=== PATIENT | male | born 1975 | race Caucasian/White ===

== ENCOUNTER → 2018-01-13 09:21 | Outpatient (CLI) | payer BC, SELFPAY ==
[2018-01-13 09:37] LABS: Basophils # 0.1 K/mm3 (0-0.2); Basophils % 0.6 % (0.1-2.0); Eosinophils # 0.4 K/mm3 (0.0-0.4); Eosinophils % 4.5 % (0.1-12.0); Hematocrit 51.9 % (42.0-52.0); Hemoglobin 16.7 g/dL (14.1-18.0); Lymphocytes # 2.4 K/mm3 (0.7-4.5); Lymphocytes % 27.9 K/mm3 (10-50); Mean Corpuscular HGB Conc 32.2 g/dL (31.8-35.4); Mean Corpuscular Hemoglobin 30.3 pg (27.0-31.2); Mean Corpuscular Volume 94.1 fl (80-94); Mean Platelet Volume 8.6 fl (7.4-10.4); Monocytes # 0.5 K/mm3 (0.1-1.0); Monocytes % 5.4 % (1.7-9.3); Neutrophils # 5.2 K/mm3 (1.8-7.8); Neutrophils % 61.7 % (37.0-80.0); Platelet Count 219 K/mm3 (142-424); Red Blood Count 5.51 M/mm3 (4.60-6.20); Red Cell Distribution Width 12.8 % (11.5-17.5); White Blood Count 8.4 K/mm3 (4.8-10.8)
[2018-01-13 10:40] LABS: Alanine Aminotransferase 29 U/L (12-78); Albumin Level 3.7 gm/dL (3.4-5.0); Albumin/Globulin Ratio 1.1 (1.1-1.8); Alkaline Phosphatase 83 U/L (46-116); Anion Gap 14.7 mEq/L (5-15); Aspartate Amino Transferase 14 U/L (15-37); Bilirubin,Total 0.6 mg/dL (0.2-1.0); Blood Urea Nitrogen 14 mg/dL (7-18); Calcium 8.9 mg/dL (8.5-10.1); Carbon Dioxide 24 mmol/L (21.0-32.0); Chloride 105 mmol/L (98-107); Chol/HDL Ratio 4.2 (1-3.5); Cholesterol 222 mg/dL (140-200); Creatinine,Serum 0.97 mg/dL (0.70-1.30); Estimated Glomerular Filt Rate 85 ml/min (>60); GFR (African American) 103 ML/MIN (>60); Globulin 3.4 gm/dl (1.3-3.2); Glucose 101 mg/dL (74-106); HDL Cholesterol 53 mg/dL (27-67); LDL Cholesterol 139 mg/dL (0-130); Potassium 4.7 mmoL/L (3.5-5.1); Sodium 139 mmol/L (136-145); Thyroid Stimulating Hormone 1.42 uIU/ml (0.358-3.740); Total Protein,Serum 7.1 gm/dL (6.4-8.2); Triglycerides 152 mg/dL (30-200); VLDL Cholesterol 30 mg/dL (0-40)
== END ==
PROVIDERS: Visit Provider Family Medicine
DX: E78.5 Hyperlipidemia, unspecified (principal); K21.9 Gastro-esophageal reflux disease without esophagitis; F41.9 Anxiety disorder, unspecified
CPT/HCPCS: 36415; 80053; 80061; 84443; 85025

== ENCOUNTER → 2018-04-07 11:23 | Outpatient (CLI) | payer BC, SELFPAY ==
[2018-04-07 11:27] LABS: Microscopic, Urine URINE MICROSCOPIC (MICROSCOPIC)
[2018-04-07 11:46] LABS: Basophils # 0.1 K/mm3 (0-0.2); Basophils % 0.7 % (0.1-2.0); Eosinophils # 0.3 K/mm3 (0.0-0.4); Eosinophils % 2.7 % (0.1-12.0); Hematocrit 51.5 % (42.0-52.0); Hemoglobin 16.8 g/dL (14.1-18.0); Lymphocytes # 2.4 K/mm3 (0.7-4.5); Lymphocytes % 22.2 K/mm3 (10-50); Mean Corpuscular HGB Conc 32.7 g/dL (31.8-35.4); Mean Corpuscular Hemoglobin 31.5 pg (27.0-31.2); Mean Corpuscular Volume 96.6 fl (80-94); Mean Platelet Volume 8.4 fl (7.4-10.4); Monocytes # 0.5 K/mm3 (0.1-1.0); Monocytes % 4.3 % (1.7-9.3); Neutrophils # 7.6 K/mm3 (1.8-7.8); Neutrophils % 70.1 % (37.0-80.0); Platelet Count 200 K/mm3 (142-424); Red Blood Count 5.33 M/mm3 (4.60-6.20); White Blood Count 10.9 K/mm3 (4.8-10.8)
[2018-04-07 11:54] LABS: Activated Partial Thrombo Time 27.8 seconds (23.6-34.0); INR 0.97 (0.9-1.1)
[2018-04-07 11:55] LABS: Appearance,Urine CLEAR (Clear); Bilirubin,Urine Negative (Negative); Blood, Urine TRACE-L (Negative); Color,Urine YELLOW (Yellow); Glucose,Urine (UA) Negative (Negative); Ketones,Urine Negative (Negative); Leukocyte Esterase,Urine Negative (Negative); Nitrate,Urine Negative (Negative); Protein,Urine Negative (Negative); Specific Gravity, Urine 1.025 (1.005-1.030); Urobilinogen,Urine 0.2 EU/dl (0.2)
--- NOTE | 2018-04-07 11:56 | XR_ITS ---
XR chest 2V HISTORY: ITS.REASON: SMOKER, PREOP ORDERING PHYSICIAN: Jos Moreland MD PATIENT AGE: 43 years COMPARISON: None FINDINGS: The cardiomediastinal silhouette and pulmonary vascularity are within normal limits. The lungs are clear without infiltrates, suspicious nodules, or pleural effusions. Mild COPD with hyperinflation No acute bony abnormalities. IMPRESSION: COPD otherwise negative
[2018-04-07 12:09] LABS: Hemoglobin A1C 5.5 % (0.0-7.0)
[2018-04-07 12:31] LABS: Amorphous Sediment,Urine 1+ /lpf; Fine Granular Casts,Urine Occasional #/lpf (0); Hyaline Casts,Urine Occasional #/lpf (0); Mucus,Urine 3+ /lpf; WBC,Urine Occasional #/hpf (0-3)
[2018-04-07 14:51] LABS: Alanine Aminotransferase 28 U/L (12-78); Albumin Level 3.8 gm/dL (3.4-5.0); Albumin/Globulin Ratio 1.1 (1.1-1.8); Alkaline Phosphatase 98 U/L (46-116); Anion Gap 15.2 mEq/L (5-15); Aspartate Amino Transferase 9 U/L (15-37); Bilirubin,Total 0.5 mg/dL (0.2-1.0); Blood Urea Nitrogen 14 mg/dL (7-18); Calcium 9.1 mg/dL (8.5-10.1); Carbon Dioxide 25 mmol/L (21.0-32.0); Chloride 105 mmol/L (98-107); Creatinine,Serum 1.15 mg/dL (0.70-1.30); Estimated Glomerular Filt Rate 70 ml/min (>60); GFR (African American) 84 ML/MIN (>60); Globulin 3.4 gm/dl (1.3-3.2); Glucose 92 mg/dL (74-106); Potassium 4.2 mmoL/L (3.5-5.1); Sodium 141 mmol/L (136-145); Total Protein,Serum 7.2 gm/dL (6.4-8.2)
== END ==
PROVIDERS: PCP Family Medicine; Visit Provider Family Medicine
DX: Z01.818 Encounter for other preprocedural examination (principal); M25.552 Pain in left hip
CPT/HCPCS: 36415; 71046; 80053; 81001; 83036; 85025; 85610; 85730; 93005

== ENCOUNTER → 2019-11-20 12:11 | Outpatient (CLI) | payer BC, SELFPAY ==
[2019-11-20 13:04] LABS: Basophils # 0.1 K/mm3 (0-0.2); Basophils % 0.7 % (0.1-2.0); Eosinophils # 0.1 K/mm3 (0.0-0.4); Eosinophils % 1.3 % (0.1-12.0); Hematocrit 49.5 % (42.0-52.0); Hemoglobin 16.1 g/dL (14.1-18.0); Lymphocytes # 2.2 K/mm3 (0.7-4.5); Lymphocytes % 25.1 % (10-50); Mean Corpuscular HGB Conc 32.6 g/dL (31.8-35.4); Mean Corpuscular Hemoglobin 31.3 pg (27.0-31.2); Monocytes # 0.5 K/mm3 (0.1-1.0); Monocytes % 5.5 % (1.7-9.3); Neutrophils # 5.9 K/mm3 (1.8-7.8); Neutrophils % 67.3 % (37.0-80.0); Platelet Count 187 K/mm3 (142-424); Red Blood Count 5.16 M/mm3 (4.60-6.20); Red Cell Distribution Width 13.2 % (11.5-17.5); White Blood Count 8.8 K/mm3 (4.8-10.8)
[2019-11-20 13:54] LABS: Strep Scrn Group A (Rapid) Negative (Negative)
== END ==
PROVIDERS: Visit Provider Physician Assistant
DX: J02.9 Acute pharyngitis, unspecified (principal)
CPT/HCPCS: 36415; 85025; 87430

== ENCOUNTER → 2021-08-30 09:27 | Outpatient (CLI) | payer BC, SELFPAY ==
--- NOTE | 2021-08-30 | CA_ITS ---
APPROVED REPORT EXAM: Comprehensive 2D, Doppler, and color-flow Echocardiogram Elect Equip Maint Eng: Maye Tan RT(R) Ht: 6 ft 1 in Wt: 255lbs BSA: 2.39 BP: 138/80 mmHg Indications: murmur, HTN, HTN, family history of HD, obesity 2D Dimensions LVOT 2.20 cm (M/F) 1.5-2.5 LA Volume 77.70 mL LA Volume Index 32.64 mL/m2 (M/F) 16-34 M-Mode Dimensions RVDd 2.61 cm (0.9-2.6) LA Diam 4.92 cm (1.9-4.0) LVDd 5.29 cm (3.5-5.7) Ao Diam 3.11 cm (2.0-3.7) LVDs 4.15 cm (3.5-5.7) IVSd 0.97 cm (0.6-1.1) PWd 0.93 cm (0.6-1.1) EF (Teich) 43.30% FS 21.60% EDV (Teich) 134.80 mL ESV (Teich) 76.40 mL LV Diastology E Decel Time 213.00 (160-240 msec) E/A Ratio 0.8 MED E' 6.00 (< 7 cm/sec) E'/MED E' Ratio 10.28 (>14) LAT E' 9.80 (<10 cm/sec) E/LAT E' Ratio 6.30 (>14) Mitral Valve MV E Max Aldo. 62.00 (40-130 cm/s) MV A Velocity 73.00 (40-130 cm/s) E/A Ratio 0.85 MV Decel. Time 213.00 (160-240 ms) MV PHT 62.00 ms Left Ventricle Left atrium is mildly enlarged, left ventricle is normal size, mild visually estimated ejection fraction 55% with no regional wall motion abnormality, grade 1 diastolic dysfunction seen without tissue Doppler evidence of raise left atrial pressure. Right Ventricle Right atrium and right ventricle are normal size and contractility. Aortic Valve Aortic valve is minimally thickened and fibrosed, there is no aortic stenosis or aortic insufficiency. Mitral Valve Mitral valve is grossly normal, there is trace mitral regurgitation. Tricuspid Valve Tricuspid grossly normal, there is trace tricuspid regurgitation, tricuspid regurgitation jet velocity is inadequate for calculation of the right ventricular systolic pressure. Pulmonic Valve Pulmonic valve is poorly visualized. Great Vessels Aortic root is normal size. Inferior vena cava is normal size with normal inspiratory collapse. Pericardium No significant pericardial effusion noted. Conclusion 1. Mildly enlarged left atrium, normal left ventricular size, mild concentric left ventricular hypertrophy, visually estimated ejection fraction 55% with no regional wall motion abnormality, grade 1 diastolic dysfunction seen without tissue Doppler evidence of raise left atrial pressure. 2. Minimally thickened and calcified aortic valve without aortic stenosis or aortic insufficiency. 3. Trace mitral and tricuspid regurgitation. 4. No significant pericardial effusion. 5. Inferior vena cava is normal size with normal inspiratory collapse. Electronically signed by : Fermin Terry MD 08/30/2021 11:25:25
[2021-08-30 12:26] LABS: Chloride 107 mmol/L (98-107); Sodium 137 mmol/L (136-145)
[2021-08-30 12:28] LABS: Blood Urea Nitrogen 12 mg/dl (9-20); Estimated Glomerular Filt Rate 91 ml/min (>60); GFR (African American) 110 ML/MIN (>60)
[2021-08-30 12:29] LABS: Alanine Aminotransferase 31 U/L (12-78); Albumin Level 4.6 g/dl (3.5-5.0); Albumin/Globulin Ratio 1.5 (1.1-1.8); Alkaline Phosphatase 80 U/L (38-126); Anion Gap 9.9 mEq/L (5-15); Aspartate Amino Transferase 36 U/L (17-59); Bilirubin,Total 0.6 mg/dl (0.2-1.3); Calcium 8.7 mg/dl (8.4-10.2); Carbon Dioxide 25 mmol/L (22.0-30.0); Cholesterol 266 mg/dl (140-200); Glucose 91 mg/dl (74-100); Potassium 4.9 mmoL/L (3.5-5.1); Total Protein,Serum 7.6 g/dl (6.3-8.2); Triglycerides 368 mg/dl (30-150); VLDL Cholesterol 74 mg/dL (0-40)
[2021-08-30 12:30] LABS: Chol/HDL Ratio 4.8 (1-3.5); HDL Cholesterol 55 mg/dl (40-60)
[2021-08-30 12:40] LABS: Direct LDL Cholesterol 131.98 mg/dL (100-129)
== END ==
PROVIDERS: PCP Family Medicine; Visit Provider Family Medicine
DX: R01.1 Cardiac murmur, unspecified (principal); I10 Essential (primary) hypertension; E78.5 Hyperlipidemia, unspecified
CPT/HCPCS: 36415; 80053; 80061; 93306

== ENCOUNTER → 2022-09-10 10:46 | Outpatient (CLI) | payer BC, SELFPAY ==
[2022-09-10 11:48] LABS: Chloride 108 mmol/L (98-107)
[2022-09-10 11:49] LABS: Potassium 4.8 mmoL/L (3.5-5.1)
[2022-09-10 11:51] LABS: Alanine Aminotransferase 31 U/L (12-78); Alkaline Phosphatase 81 U/L (38-126); Aspartate Amino Transferase 27 U/L (17-59); Bilirubin,Total 0.8 mg/dl (0.2-1.3); Blood Urea Nitrogen 13 mg/dl (9-20); Carbon Dioxide 26 mmol/L (22.0-30.0); Cholesterol 226 mg/dl (140-200); Estimated Glomerular Filt Rate 80 ml/min (>60); GFR (African American) 97 ML/MIN (>60); Triglycerides 273 mg/dl (30-150); VLDL Cholesterol 55 mg/dL (0-40)
[2022-09-10 11:52] LABS: Albumin Level 4.2 g/dl (3.5-5.0); Albumin/Globulin Ratio 1.6 (1.1-1.8); Calcium 9.2 mg/dl (8.4-10.2); Chol/HDL Ratio 4.2 (1-3.5); Globulin 2.7 g/dL (1.3-3.2); Glucose 108 mg/dl (74-100); HDL Cholesterol 54 mg/dl (40-60); Total Protein,Serum 6.9 g/dl (6.3-8.2)
[2022-09-10 12:02] LABS: Direct LDL Cholesterol 120.11 mg/dL (100-129)
[2022-09-10 12:24] LABS: Prostate Specific Ag Screen 0.7 ng/ml (0.0-4.0)
[2022-09-10 12:34] LABS: Anion Gap 8.8 mEq/L (5-15); Sodium 138 mmol/L (136-145)
== END ==
PROVIDERS: PCP Family Medicine; Visit Provider Physician Assistant
DX: I10 Essential (primary) hypertension (principal); E78.5 Hyperlipidemia, unspecified; Z12.5 Encounter for screening for malignant neoplasm of prostate
CPT/HCPCS: 36415; 80053; 80061; G0103

== ENCOUNTER 2023-05-16 10:00 | Outpatient (RCR) | payer BC, SELFPAY ==
--- NOTE | 2023-03-23 15:38 | [facility].PTOPWND ---
Rehab Outpt Wound Evaluation Rehab OP Wound Evaluation Start: 03/23/23 15:00 Freq: Status: Active Protocol: Document 03/23/23 15:26 [email or web address] (Rec: 03/23/23 15:37 PHORNE [id number]) E-signed By Ray Retana, PT Subjective/History History History This is the initial PT eval for Joshua Silva, 48 yowm who presents with L LE lymphedema x ~ 8 yrs overall and gradually worsening. He reports insidious onset of symptoms and his edema intermittently worsens despite all of his attempts to treat it. He reports pain also increases intermittently with the edema. He presents with significant varicose veins and hemosiderin staining throughout the L Lower Leg. He also presents with 2 small wounds on the medial and lateral L ankle that he reports are from his new boots rubbing his leg. He reports hx of HTN and L ANGEL ~ 5 yrs ago. Subjective Subjective He reports 0/10 pain at this time, and 7/10 sharp pains at the worst. He has no pitting edema currently, but Moderate fibrotic edema. 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 He reports 2/4 TTP in the anabella-wound skin of his L lower leg. New diagnosis of cancer in past 12 No months? Lymphedema Eval Classification of Lymphedema Secondary Lymphedema Yes: CVI vs auto-inflammatory. Stemmer's sign Stemmer's Sign yes Stage of Lymphedema Lymphedema stages Stage III (Non-pitting, fibrosis and sclerosis, skin changes) Skin Changes Dry Skin Yes Taut, Shiny Skin Yes Redness Yes Wounds Yes Discoloration of Skin Yes Other Changes Yes: lipodermatosclerosis Pain Scale Pain Scale (0-10) 7 Affected Extremities Areas Affected by Lymphedema/Edema Left Lower Extremity Manual Lymphatic Drainage
--- NOTE | 2023-04-25 14:57 | [facility]H.RHREAS ---
Rehab Reassessment Rehab OP Re-assessment Start: 03/23/23 15:00 Freq: Status: Active Protocol: Document 04/25/23 14:53 [email or web address] (Rec: 04/25/23 14:57 PHOJOSE LUIS [id number]) E-signed By Ray Retana, PT Rehab Re-assessment Subjective Subjective Pt reports, I don't get that fatigue like I did before. I used to be dragging my leg at the end of a shift at work, but now it feels a lot better. Objective Objective Notes Circumferential Measurements: L LE total is 288.9 cm which is -14.2 cm since IE. TTP: 1/4 L lower leg. Pain: 3/10 at worst in L LE. Edema: Mild fibrotic edema remains throughout L lower leg . Assessment Progress Assessment Progressing as Expected Assessment Notes Pt has shown significant reduction in overall edema in the L LE. Much improved ambulation ability and work ability with less fatigue. He continues to need skilled intervention to return to prior level of function. Patient goals met ST,2,3,4,5 Goals Not Met LT,2,3,4,5,6,7,8 Plan Plan Continue per initial POC. Frequency of Therapy 2 x/wk Duration of therapy 4 wks Time and Billing Re-Eval Time 13 Re-Eval Billing Units 1 PHYSICIAN CERTIFICATION: I certify the specified therapy services for Joshua Silva are required, authorized, and reviewed every 30 days.
== END 2023-05-16 10:05 | disposition home or self-care (01) ==
LOC: PT 10:00
PROVIDERS: PCP Family Medicine; Visit Provider Physician Assistant
DX: I89.0 Lymphedema, not elsewhere classified (principal)
CPT/HCPCS: 97140; 97163; 97164; 97760

== ENCOUNTER 2023-08-15 15:22 | Outpatient (CLI) | payer BC, SELFPAY ==
[2023-08-15 15:33] LABS: Coronavirus 19, PCR Not Detected (NotDetected); Influenza B, PCR Not Detected (NotDetected)
[2023-08-15 16:45] LABS: Influenza A, PCR Detected (NotDetected)
== END 2023-08-15 23:59 ==
PROVIDERS: PCP Physician Assistant; Visit Provider Family Medicine
DX: R50.9 Fever, unspecified (principal); R05.9 Cough, unspecified; J09.X2 Influenza due to identified novel influenza A virus with other respiratory manifestations
CPT/HCPCS: 87636

== ENCOUNTER → 2024-01-22 08:08 | Outpatient (CLI) | payer BC, SELFPAY | LOC: SL 08:10 | PROVIDERS: PCP Nurse Practitioner Family; Visit Provider Nurse Practitioner Family | DX: G47.30 Sleep apnea, unspecified (principal) | CPT/HCPCS: G0399 ==